=== PATIENT | female | born 1995 | race Caucasian/White ===

== ENCOUNTER 2017-02-06 16:08 | Emergency (ER) | payer OTHER ==
[~2017-02-06] VITALS: Ht 162.6 cm; Wt 57.7 kg
[2017-02-06 16:34] VITALS: BP 115/68
[2017-02-06 17:54] LABS: EOSINOPHILS # (AUTO) 0.5 K/uL (0-0.4); HEMATOCRIT 36.7 % (36-48); MEAN CORPUSCULAR HEMOGLOBIN 27 pg (27-31); MEAN CORPUSCULAR HGB CONC 33 g/dL (33-37); MEAN CORPUSCULAR VOLUME 83 fL (80-94); PLATELET COUNT (AUTO) 164 K/uL (140-450); RED BLOOD CELL COUNT(AUTO) 4.41 MIL/uL (4.20-5.40); RED CELL DISTRIBUTION WIDTH 14.9 % (11.6-13.7)
[2017-02-06 17:54] LABS: APPEARANCE,URINE CLEAR (CLEAR); BILIRUBIN,URINE NEGATIVE (NEGATIVE); BLOOD, URINE 3+ (NEGATIVE); COLOR,URINE YELLOW (YELLOW); LEUKOCYTE ESTERASE ,URINE NEGATIVE (NEGATIVE); NITRITE, URINE NEGATIVE (NEGATIVE); PROTEIN,URINE NEGATIVE (NEGATIVE); UGLUCOSE NEGATIVE (NEGATIVE); UROBILINOGEN,URINE 0.2 EU/dL (0.2 - 1)
[2017-02-06 17:56] LABS: BASOPHILS % (AUTO) 4.1 % (0.0-2.0); LYMPHOCYTES % (AUTO) 17.5 % (20.5-51.1); MONOCYTES % (AUTO) 8.1 % (1.7-9.3); NEUTROPHILS % (AUTO) 62.3 % (42.2-75.2)
[2017-02-06 17:57] LABS: BASOPHILS # (AUTO) 0.2 K/uL (0.00-0.22); EOSINOPHILS % (AUTO) 8.1 % (0.0-4.0); MONOCYTES # (AUTO) 0.5 K/uL (0.8-1.0); NEUTROPHILS # (AUTO) 3.6 K/uL (1.8-7.7)
[2017-02-06 17:57] LABS: BACTERIA,URINE RARE /HPF (None Seen); RBC,URINE 40-60 /HPF (0-5); SQUAMOUS EPITHELIAL CELL,UR 0-3 /LPF (0-3 (FEW)); WBC,URINE 0-3 /HPF (0-5)
[2017-02-06 18:01] LABS: ANION GAP 12.6 (8-16); CALCIUM 8.6 mg/dL (8.5-10.1); CARBON DIOXIDE 28.4 mmol/L (21-32); CREATININE 0.7 mg/dL (0.6-1.3)
[2017-02-06 18:07] LABS: PROTHROMBIN TIME 10.4 secs (10.8-13.4)
[2017-02-06 18:08] LABS: ALBUMIN 3.8 g/dL (3.4-5.0); TOTAL BILIRUBIN 0.1 mg/dL (0.0-1.0); TOTAL PROTEIN, SERUM 7.4 g/dL (6.4-8.2)
--- NOTE | 2017-02-06 19:44 | NUR ---
PT TAKEN TO BED 6
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
--- NOTE | 2017-02-06 20:18 | NUR ---
Dr. Dennis evaluating patient at bedside.
[2017-02-06] MEDS ORDERED: KETOROLAC 60 MG/2 ML VIAL IM ONE (20:25)
[2017-02-06 20:48] VITALS: BP 111/65
--- NOTE | 2017-02-06 20:48 | NUR ---
Patient discharged with v/s stable. Written and verbal after care instructions given and explained. Patient alert, oriented and verbalized understanding of instructions. Ambulatory with steady gait. All questions addressed prior to discharge. ID band removed. Patient advised to follow up with PMD. Rx of MOTRIN 600MG TID given. Patient educated on indication of medication including possible reaction and side effects. Opportunity to ask questions provided and answered.
== END 2017-02-06 20:48 | disposition home or self-care (01) ==
LOC: MED 16:08
DX: N93.9 Abnormal uterine and vaginal bleeding, unspecified (principal); R10.30 Lower abdominal pain, unspecified
CPT/HCPCS: 36415; 80053; 81001; 84702; 85025; 85610; 96372; 99284; J1885

== ENCOUNTER 2018-06-17 15:38 | Emergency (ER) | payer OTHER ==
[~2018-06-17] VITALS: Ht 154.9 cm; Wt 65.5 kg
[2018-06-17 15:45] VITALS: BP 122/70
[2018-06-17 16:45] LABS: BASOPHILS # (AUTO) 0.1 K/uL (0.00-0.22); BASOPHILS % (AUTO) 0.8 % (0.0-2.0); EOSINOPHILS # (AUTO) 0.5 K/uL (0-0.4); EOSINOPHILS % (AUTO) 6.7 % (0.0-4.0); HEMATOCRIT 40.6 % (36-48); HEMOGLOBIN 13.3 g/dL (12.0-16.0); LYMPHOCYTES # (AUTO) 1.3 K/uL (2.5-16.5); LYMPHOCYTES % (AUTO) 18.9 % (20.5-51.1); MEAN CORPUSCULAR HEMOGLOBIN 28 pg (27-31); MEAN CORPUSCULAR HGB CONC 33 g/dL (33-37); MEAN CORPUSCULAR VOLUME 86.3 fL (80-94); MONOCYTES # (AUTO) 0.5 K/uL (0.8-1.0); MONOCYTES % (AUTO) 6.5 % (1.7-9.3); NEUTROPHILS # (AUTO) 4.7 K/uL (1.8-7.7); NEUTROPHILS % (AUTO) 67.1 % (42.2-75.2); PLATELET COUNT (AUTO) 223 K/uL (140-450); RED BLOOD CELL COUNT(AUTO) 4.71 MIL/uL (4.20-5.40); RED CELL DISTRIBUTION WIDTH 13.5 % (11.6-13.7)
[2018-06-17 17:10] LABS: APPEARANCE,URINE CLEAR (CLEAR); BILIRUBIN,URINE NEGATIVE (NEGATIVE); BLOOD, URINE NEGATIVE (NEGATIVE); COLOR,URINE YELLOW (YELLOW); LEUKOCYTE ESTERASE ,URINE NEGATIVE (NEGATIVE); NITRITE, URINE NEGATIVE (NEGATIVE); UGLUCOSE NEGATIVE (NEGATIVE)
[2018-06-17 18:10] VITALS: BP 122/70
== END 2018-06-17 18:11 | disposition home or self-care (01) ==
LOC: MED 15:38
DX: O26.891 Other specified pregnancy related conditions, first trimester (principal); R10.30 Lower abdominal pain, unspecified; J45.909 Unspecified asthma, uncomplicated; Z90.49 Acquired absence of other specified parts of digestive tract
CPT/HCPCS: 36415; 76817; 81003; 81025; 84702; 85025; 86900; 86901; 99285; Q0092

== ENCOUNTER 2018-07-16 18:28 | Emergency (ER) | payer OTHER ==
[~2018-07-16] VITALS: Ht 154.9 cm; Wt 65.3 kg
[2018-07-16 18:34] VITALS: BP 137/74
--- NOTE | 2018-07-16 18:36 | NUR ---
PT AMBULATED TO BED 12
--- NOTE | 2018-07-16 18:48 | NUR ---
23/F BIB SELF C/O VAGINAL DISCHARGE X 3 DAYS, CLEAR INCREASED OVER PAST FEW DAYS. DENIES BLEEDING. ALSO C/O BORGES & LOW BACK PAIN 10. 9 WEEKS , + CARE . HX---NONE. MEDS---NONE. PT DENIES ANY FEVER, CP, SOB, OR COUGH AT THIS TIME; PATIENT STATES PAIN OF 7/10 AT THIS TIME. PATIENT POSITIONED FOR COMFORT; HOB ELEVATED; BEDRAILS UP X2; BED DOWN. ER MD MADE AWARE OF PT STATUS.
--- NOTE | 2018-07-16 19:13 | NUR ---
Pt report given to IDA CALVO. Transfer of care at this time.
--- NOTE | 2018-07-16 19:25 | NUR ---
RECEIVED REPORT FROM AM NURSE. PT LAYING IN BED, RR EVEN AND UNLABORED. PT REPORTS TOLERABLE LLQ CRAMPING DISCOMFORT AT THIS TIME. ALL NEEDS MET.
--- NOTE | 2018-07-16 19:28 | NUR ---
Dr. Dennis evaluating patient at bedside.
--- NOTE | 2018-07-16 19:47 | NUR ---
PT TAKEN TO ULTRASOUND
[2018-07-16 20:13] LABS: APPEARANCE,URINE CLEAR (CLEAR); BILIRUBIN,URINE NEGATIVE (NEGATIVE); BLOOD, URINE NEGATIVE (NEGATIVE); COLOR,URINE YELLOW (YELLOW); LEUKOCYTE ESTERASE ,URINE NEGATIVE (NEGATIVE); NITRITE, URINE NEGATIVE (NEGATIVE); PH,URINE 6.5 (5.0-9.0); UGLUCOSE NEGATIVE (NEGATIVE)
--- NOTE | 2018-07-16 20:23 | NUR ---
PT RETURN FROM ULTRASOUND
[2018-07-16 20:41] LABS: BASOPHILS # (AUTO) 0.1 K/uL (0.00-0.22); BASOPHILS % (AUTO) 0.6 % (0.0-2.0); EOSINOPHILS # (AUTO) 0.5 K/uL (0-0.4); HEMATOCRIT 40.1 % (36-48); HEMOGLOBIN 13.1 g/dL (12.0-16.0); LYMPHOCYTES # (AUTO) 1.4 K/uL (2.5-16.5); MEAN CORPUSCULAR HEMOGLOBIN 29 pg (27-31); MEAN CORPUSCULAR HGB CONC 33 g/dL (33-37); MEAN CORPUSCULAR VOLUME 87.1 fL (80-94); MONOCYTES # (AUTO) 0.6 K/uL (0.8-1.0); MONOCYTES % (AUTO) 6.4 % (1.7-9.3); NEUTROPHILS # (AUTO) 6.7 K/uL (1.8-7.7); PLATELET COUNT (AUTO) 233 K/uL (140-450); WHITE BLOOD COUNT (AUTO) 9.2 K/uL (4.8-10.8)
[2018-07-16 21:29] VITALS: BP 109/71
--- NOTE | 2018-07-16 21:29 | NUR ---
Patient discharged with v/s stable. Written and verbal after care instructions given and explained. Patient verbalized understanding. Ambulatory with steady gait. All questions addressed prior to discharge. Advised to follow up with PMD.
[2018-07-18 06:21] LABS: CHLAMYDIA TRACHOMATIS AMP DNA Negative (Negative)
== END 2018-07-16 21:29 | disposition home or self-care (01) ==
LOC: MED 18:28
DX: O26.891 Other specified pregnancy related conditions, first trimester (principal); R10.32 Left lower quadrant pain; M54.5 Low back pain; Z90.89 Acquired absence of other organs; Z3A.09 9 weeks gestation of pregnancy
CPT/HCPCS: 36415; 76817; 81003; 81025; 84702; 85025; 87491; 99284; Q0092

== ENCOUNTER 2018-11-21 12:12 | Emergency (ER) | payer OTHER ==
[~2018-11-21] VITALS: Ht 154.9 cm; Wt 76.5 kg
[2018-11-21 12:19] VITALS: BP 114/74
--- NOTE | 2018-11-21 12:31 | NUR ---
23/F BIB BF WITH C/O WEAKNESS, LIGHT HEADACHE, +NAUSEA X3 DAYS, 27 WEEKS . SKIN IS PINK/WARM/DRY; AAOX4 WITH EVEN AND STEADY GAIT; LUNGS CLEAR BL; HR EVEN AND REGULAR; PT DENIES ANY FEVER, CP, SOB, OR COUGH AT THIS TIME; PATIENT STATES PAIN OF 0/10 AT THIS TIME. PATIENT POSITIONED FOR COMFORT; HOB ELEVATED; BEDRAILS UP X2; BED DOWN. ER MD MADE AWARE OF PT STATUS.
[2018-11-21] MEDS ORDERED: ONDANSETRON 4 MG/2 ML VIAL IVP ONE (13:15)
[2018-11-21] MEDS ORDERED: MULTIVITAMIN-12 10 ML, THIAMINE 100 MG, MAGNESIUM SULFATE 50% 2,000 MG, FOLIC ACID 5 MG... IV ONE ×5 (13:15)
[2018-11-21] MEDS ORDERED: FAMOTIDINE 20 MG TAB PO ONE (13:15)
[2018-11-21] MEDS ORDERED: LACTATED RINGERS 1,000 ML IV ONE (13:15)
[2018-11-21] MEDS ORDERED: PROMETHAZINE 25 MG/ML VIAL IM ONE (13:15)
[2018-11-21] MEDS ORDERED: MECLIZINE 25 MG TAB PO ONE (13:15)
[2018-11-21] MEDS ORDERED: hydrOXYzine HCL 25 MG TAB PO ONE (13:15)
[2018-11-21 13:16] LABS: BARBITURATE, URINE NEG. ng/ml (NEG <=200); BENZODIAZEPINE, URINE NEG. ng/mL (NEG <=200); CANNABINOID, URINE NEG. ng/mL (NEG <=50); COCAINE, URINE NEG. ng/mL (NEG <=300); OPIATE, URINE NEG. ng/mL (NEG <=2000); PHENCYCLIDINE SCREEN,URINE NEG. ng/mL (NEG <=25)
[2018-11-21 14:22] LABS: BASOPHILS % (AUTO) 0.3 % (0.0-2.0); EOSINOPHILS # (AUTO) 0.3 K/uL (0-0.4); EOSINOPHILS % (AUTO) 3.2 % (0.0-4.0); HEMATOCRIT 35.9 % (36-48); HEMOGLOBIN 12.1 g/dL (12.0-16.0); LYMPHOCYTES % (AUTO) 11.2 % (20.5-51.1); MEAN CORPUSCULAR HEMOGLOBIN 30 pg (27-31); MEAN CORPUSCULAR HGB CONC 34 g/dL (33-37); MEAN CORPUSCULAR VOLUME 87.7 fL (80-94); MONOCYTES # (AUTO) 0.5 K/uL (0.8-1.0); MONOCYTES % (AUTO) 5.6 % (1.7-9.3); NEUTROPHILS % (AUTO) 79.7 % (42.2-75.2); PLATELET COUNT (AUTO) 183 K/uL (140-450); RED CELL DISTRIBUTION WIDTH 14.1 % (11.6-13.7); WHITE BLOOD COUNT (AUTO) 8.8 K/uL (4.8-10.8)
[2018-11-21 14:27] LABS: ANION GAP 10.6 (8-16); CARBON DIOXIDE 25.9 mmol/L (21-32); CHLORIDE 102 mmol/L (98-107); CREATININE 0.5 mg/dL (0.6-1.3); GFR ARICAN-AMERICAN 200 mL/min (>90); GLUCOSE 131 mg/dL (74-106); POTASSIUM 3.5 mmol/L (3.5-5.1); SODIUM SERUM 135 mmol/L (136-145); UREA NITROGEN, BLOOD 6 mg/dL (7-18)
[2018-11-21 14:34] LABS: ALBUMIN 2.7 g/dL (3.4-5.0); ASPARTATE AMINOTRANSFERASE 14 U/L (15-37); MAGNESIUM 1.8 mg/dL (1.8-2.4); TOTAL BILIRUBIN 0.1 mg/dL (0.0-1.0)
[2018-11-21 14:53] LABS: ACETONE, SERUM NEGATIVE (NEGATIVE)
[2018-11-21 16:44] VITALS: BP 120/75
--- NOTE | 2018-11-21 16:44 | NUR ---
Patient discharged with v/s stable. Written and verbal after care instructions given and explained. Patient alert, oriented and verbalized understanding of instructions. Ambulatory with steady gait. All questions addressed prior to discharge. ID band removed. Patient advised to follow up with PMD. Rx of [facility] vitamins, periactin given. Patient educated on indication of medication including possible reaction and side effects. Opportunity to ask questions provided and answered.
[2018-11-21 21:15] LABS: APPEARANCE,URINE HAZY (CLEAR); BILIRUBIN,URINE NEGATIVE (NEGATIVE); BLOOD, URINE NEGATIVE (NEGATIVE); COLOR,URINE YELLOW (YELLOW); LEUKOCYTE ESTERASE ,URINE NEGATIVE (NEGATIVE); NITRITE, URINE NEGATIVE (NEGATIVE); UGLUCOSE 2+ (NEGATIVE)
== END 2018-11-21 16:44 | disposition home or self-care (01) ==
LOC: MED 12:12
DX: O21.0 Mild hyperemesis gravidarum (principal); O26.892 Other specified pregnancy related conditions, second trimester; R51 Headache; Z3A.24 24 weeks gestation of pregnancy
CPT/HCPCS: 36415; 80053; 80305; 81003; 81025; 82009; 83605; 83735; 85025; 96365; 96372; 96375; 99284; A9153; J2405; J2550; J3411; J3475; J3490; J7030; J7120; J8597

== ENCOUNTER 2019-02-12 14:12 | Emergency (ER) | payer OTHER ==
[~2019-02-12] VITALS: Ht 154.9 cm; Wt 82.1 kg
[2019-02-12 14:30] VITALS: BP 134/84
--- NOTE | 2019-02-12 14:30 | NUR ---
PATIENT BIB W/C TO ER BED 6.
--- NOTE | 2019-02-12 14:40 | NUR ---
PT IS A 23 Y/O FEMALE WHO PRESENTS TO THE ED C/O VOMITING. PER PT IS X38 WEEKS AND STARTED VOMITING TODAY AT 0300. LMP 05/10/19. PT REPORTS 5/10 ACHING UPPER ABD PAIN THAT DOES NOT RADIATE. PT DENIES CP, SOB, REPORTS VOMITING/DIARRHEA. PT AWAKE AND ALERT, RR EVEN/UNLABORED. PT REPOSITIONED FOR COMFORT, BED IN LOWEST POSITION. ER MD DR. BAXTER NOTIFIED. WILL CONTINUE TO MONITOR. PMH---ASTHMA NKA
--- NOTE | 2019-02-12 14:51 | NUR ---
Dr. Gonzales evaluating patient at bedside.
[2019-02-12] MEDS ORDERED: ONDANSETRON 4 MG/2 ML VIAL IVP ONE (15:00)
--- NOTE | 2019-02-12 15:00 | NUR ---
PATIENT REPORT GIVEN TO CRISTHIAN CALVO. TRANSFER OF CARE AT THIS TIME.
--- NOTE | 2019-02-12 15:30 | NUR ---
UNIT CONTROL WORKER AT BEDSIDE
[2019-02-12 15:33] LABS: BASOPHILS % (AUTO) 0.6 % (0.0-2.0); EOSINOPHILS # (AUTO) 0.6 K/uL (0-0.4); EOSINOPHILS % (AUTO) 7.7 % (0.0-4.0); HEMATOCRIT 39.4 % (36-48); HEMOGLOBIN 12.9 g/dL (12.0-16.0); LYMPHOCYTES # (AUTO) 0.9 K/uL (2.5-16.5); LYMPHOCYTES % (AUTO) 12.9 % (20.5-51.1); MEAN CORPUSCULAR HEMOGLOBIN 29 pg (27-31); MEAN CORPUSCULAR HGB CONC 33 g/dL (33-37); MEAN CORPUSCULAR VOLUME 88.4 fL (80-94); MONOCYTES # (AUTO) 0.5 K/uL (0.8-1.0); MONOCYTES % (AUTO) 6.7 % (1.7-9.3); NEUTROPHILS # (AUTO) 5.3 K/uL (1.8-7.7); NEUTROPHILS % (AUTO) 72.1 % (42.2-75.2); PLATELET COUNT (AUTO) 147 K/uL (140-450); RED BLOOD CELL COUNT(AUTO) 4.45 MIL/uL (4.20-5.40); RED CELL DISTRIBUTION WIDTH 14.2 % (11.6-13.7); WHITE BLOOD COUNT (AUTO) 7.3 K/uL (4.8-10.8)
[2019-02-12 15:35] LABS: APPEARANCE,URINE CLEAR (CLEAR); BILIRUBIN,URINE NEGATIVE (NEGATIVE); BLOOD, URINE TRACE-L (NEGATIVE); COLOR,URINE YELLOW (YELLOW); LEUKOCYTE ESTERASE ,URINE NEGATIVE (NEGATIVE); NITRITE, URINE NEGATIVE (NEGATIVE); UGLUCOSE NEGATIVE (NEGATIVE)
[2019-02-12 15:45] LABS: WBC,URINE 0-5 /HPF (0-5)
[2019-02-12 15:53] LABS: ALBUMIN 2.6 g/dL (3.4-5.0); ANION GAP 16.3 (8-16); CARBON DIOXIDE 20.2 mmol/L (21-32); CREATININE 0.6 mg/dL (0.6-1.3); POTASSIUM 3.5 mmol/L (3.5-5.1); TOTAL BILIRUBIN 0.3 mg/dL (0.0-1.0)
--- NOTE | 2019-02-12 16:30 | NUR ---
PT AAO X4. PT DENIES NAUSEA. PT STATES MILD PAIN AT THIS TIME.
[2019-02-12 17:58] VITALS: BP 125/84
--- NOTE | 2019-02-12 17:58 | NUR ---
DR BAXTER AT BEDSIDE FOR PT DISCHARGE
== END 2019-02-12 17:58 | disposition home or self-care (01) ==
LOC: MED 14:12
DX: O98.513 Other viral diseases complicating pregnancy, third trimester (principal); Z3A.38 38 weeks gestation of pregnancy; Z90.89 Acquired absence of other organs
CPT/HCPCS: 36415; 76805; 80053; 81001; 81025; 84702; 85025; 86900; 86901; 87086; 96374; 99284; J2405; Q0092

== ENCOUNTER 2021-01-21 20:01 | Emergency (ER) | payer OTHER ==
[~2021-01-21] VITALS: Ht 157.5 cm; Wt 70.8 kg
[2021-01-21 20:17] VITALS: BP 120/80
--- NOTE | 2021-01-21 20:17 | NUR ---
TO BED AMBULATORY
--- NOTE | 2021-01-21 20:56 | NUR ---
25 Y/O FEMALE PATIENT PRESENTS TO ED WITH VAGINAL BLEEDING. PT STATES "I TESTED POSITIVE FOR TODAY, AND I NOTICED A SCNATY AMOUNT OF BLOOD SINCE FRIDAY, I THOUGHT I WAS JUST ON MY PERIOD." DENIES N/V/D; SKIN IS PINK/WARM/DRY; AAOX4 WITH EVEN AND STEADY GAIT; LUNGS CLEAR BL; HR EVEN AND REGULAR; PT DENIES ANY FEVER, CP, SOB, OR COUGH AT THIS TIME; PATIENT STATES PAIN OF 5/10 LOWER ABDOMINAL PAIN AT THIS TIME; VSS; PATIENT POSITIONED FOR COMFORT; HOB ELEVATED; BEDRAILS UP X2; BED DOWN. ER MD MADE AWARE OF PT STATUS. NORA PMH: ASTHMA LMP: October G3 L1 M1
[2021-01-21 21:09] LABS: BASOPHILS % (AUTO) 0.6 % (0.0-2.0); EOSINOPHILS # (AUTO) 0.3 K/uL (0-0.4); EOSINOPHILS % (AUTO) 6.2 % (0.0-4.0); HEMATOCRIT 38.3 % (36-48); HEMOGLOBIN 12.8 g/dL (12.0-16.0); LYMPHOCYTES # (AUTO) 1.3 K/uL (2.5-16.5); MEAN CORPUSCULAR HEMOGLOBIN 30 pg (27-31); MEAN CORPUSCULAR HGB CONC 33 g/dL (33-37); MEAN CORPUSCULAR VOLUME 88.6 fL (80-94); MONOCYTES # (AUTO) 0.4 K/uL (0.8-1.0); MONOCYTES % (AUTO) 7.4 % (1.7-9.3); NEUTROPHILS # (AUTO) 3.5 K/uL (1.8-7.7); NEUTROPHILS % (AUTO) 61.8 % (42.2-75.2); PLATELET COUNT (AUTO) 185 K/uL (140-450); RED BLOOD CELL COUNT(AUTO) 4.33 MIL/uL (4.20-5.40); RED CELL DISTRIBUTION WIDTH 13.2 % (11.6-13.7); WHITE BLOOD COUNT (AUTO) 5.6 K/uL (4.8-10.8)
[2021-01-21 21:24] LABS: BILIRUBIN,URINE NEGATIVE (NEGATIVE); BLOOD, URINE 3+ (NEGATIVE); COLOR,URINE YELLOW (YELLOW); LEUKOCYTE ESTERASE ,URINE 1+ (NEGATIVE); NITRITE, URINE NEGATIVE (NEGATIVE); UGLUCOSE NEGATIVE (NEGATIVE)
[2021-01-21 21:27] LABS: ALBUMIN 3.8 g/dL (3.4-5.0); CARBON DIOXIDE 27.1 mmol/L (21-32); CREATININE 0.7 mg/dL (0.6-1.3); POTASSIUM 4.1 mmol/L (3.5-5.1); TOTAL BILIRUBIN 0.2 mg/dL (0.0-1.0)
[2021-01-21 21:38] LABS: APPEARANCE,URINE SLIGHTLY HAZY (CLEAR)
[2021-01-21 21:40] LABS: RBC,URINE 0-5 /HPF (0-5); WBC,URINE 0-5 /HPF (0-5)
[2021-01-21] MEDS ORDERED: PNV1TABL5 PO (22:17)
[2021-01-21 23:23] VITALS: BP 118/78
--- NOTE | 2021-01-21 23:24 | NUR ---
Patient discharged with v/s stable. Written and verbal after care instructions given and explained. Patient alert, oriented and verbalized understanding of instructions. Ambulatory with steady gait. All questions addressed prior to discharge. ID band removed. Patient advised to follow up with PMD. Rx of VITAMIN given. Patient educated on indication of medication including possible reaction and side effects. Opportunity to ask questions provided and answered.
== END 2021-01-21 23:23 | disposition home or self-care (01) ==
LOC: MED 20:01
DX: O20.0 Threatened abortion (principal); J45.909 Unspecified asthma, uncomplicated; Z3A.08 8 weeks gestation of pregnancy
CPT/HCPCS: 36415; 76817; 80053; 81001; 81025; 84702; 85025; 86886; 86900; 86901; 87086; 99284

== ENCOUNTER 2021-03-19 16:49 | Emergency (ER) | payer OTHER ==
[~2021-03-19] VITALS: Ht 167.6 cm; Wt 62.1 kg
[~2021-03-19 16:49] MED LIST: PNV1TABL5 PO
[2021-03-19 17:09] VITALS: BP 125/83
[2021-03-19] MEDS ORDERED: ACETAMINOPHEN 325 MG TAB PO ONE (17:55)
--- NOTE | 2021-03-19 20:12 | NUR ---
PT CALLED ON PERSONAL CELLPHONE AND ASKED TO RETURN TO LOBBY.
[2021-03-19] MEDS ORDERED: ACET-2619 PO (20:39)
[2021-03-20 02:28] LABS: APPEARANCE,URINE CLOUDY (CLEAR); BILIRUBIN,URINE NEGATIVE (NEGATIVE); BLOOD, URINE NEGATIVE (NEGATIVE); COLOR,URINE YELLOW (YELLOW); LEUKOCYTE ESTERASE ,URINE NEGATIVE (NEGATIVE); NITRITE, URINE NEGATIVE (NEGATIVE); UGLUCOSE NEGATIVE (NEGATIVE)
== END 2021-03-19 21:03 | disposition home or self-care (01) ==
LOC: MED 16:49
DX: O9A.212 Injury, poisoning and certain other consequences of external causes complicating pregnancy, second trimester (principal); O26.892 Other specified pregnancy related conditions, second trimester; R10.30 Lower abdominal pain, unspecified; M54.5 Low back pain; J45.909 Unspecified asthma, uncomplicated; Z3A.15 15 weeks gestation of pregnancy; Z79.899 Other long term (current) drug therapy
CPT/HCPCS: 76805; 81003; 99284

== ENCOUNTER 2021-06-10 18:45 | Observation (INO) | payer OTHER, SELFPAY ==
[~2021-06-10] VITALS: Ht 157.5 cm; Wt 83.0 kg
[~2021-06-10 18:45] MED LIST changes: +ACET-2619 PO
[2021-06-10] MEDS ORDERED: ONDA8TAB87 PO (22:35)
== END 2021-06-10 19:45 | disposition home or self-care (01) ==
LOC: MLD 18:45
PROVIDERS: ADMIT Obstetrics & Gynecology; ATTEND Obstetrics & Gynecology
DX: O26.893 Other specified pregnancy related conditions, third trimester (principal); R10.9 Unspecified abdominal pain; Z3A.28 28 weeks gestation of pregnancy
CPT/HCPCS: 59025; 81000; G0378; G0379

== ENCOUNTER 2021-06-10 19:59 | Emergency (ER) | payer OTHER, SELFPAY ==
[~2021-06-10] VITALS: Ht 157.5 cm; Wt 83.5 kg
[2021-06-10 20:15] VITALS: BP 119/67
--- NOTE | 2021-06-10 20:20 | NUR ---
PT AMBULATED TO LOBBY TO A/W BED. PT UNABLE TO PROVIDE URINE SPECIMEN AT THIS TIME.
--- NOTE | 2021-06-10 21:00 | NUR ---
PT A,BULATED TO ER BED 11 UNASSISTED Addendum: 06/10/21 at 2102 by MEDWA PT AMBULATED TO ER BED 11 UNASSISTED
[2021-06-10] MEDS ORDERED: ONDANSETRON 4 MG/2 ML VIAL IVP ONE ×2 (21:05→22:10)
[2021-06-10] MEDS ORDERED: NACL 0.9% 1,000 ML IV ONE ×2 (21:05→22:10)
[2021-06-10 21:07] LABS: APPEARANCE,URINE CLEAR (CLEAR); BILIRUBIN,URINE NEGATIVE (NEGATIVE); BLOOD, URINE NEGATIVE (NEGATIVE); COLOR,URINE YELLOW (YELLOW); LEUKOCYTE ESTERASE ,URINE NEGATIVE (NEGATIVE); NITRITE, URINE NEGATIVE (NEGATIVE); UGLUCOSE NEGATIVE (NEGATIVE)
--- NOTE | 2021-06-10 21:38 | NUR ---
PATIENT REPORTS DIZZINESS AND SOME NAUSEA. WAS JUST DISCHARGED FROM THIS FACILITY TONIGHT FROM L/D. PATIENT IS AND CAME DIRECTLY TO ER AFTER DISCHARGE
--- NOTE | 2021-06-10 22:08 | NUR ---
ER AT BEDSIDE
[2021-06-10] MEDS ORDERED: ONDA8TAB87 PO (22:35)
[2021-06-10 23:02] VITALS: BP 108/67
--- NOTE | 2021-06-10 23:02 | NUR ---
CLEARED FOR DISCHARGE AT THIS TIME. NO FURTHER COMPLAINTS OR CONCERNS FOLLOWING DISCHARGE TEACHING. DENIES ANY FURTHER QUESTIONS.
== END 2021-06-10 23:02 | disposition home or self-care (01) ==
LOC: MED 19:59
DX: O21.8 Other vomiting complicating pregnancy (principal); O26.893 Other specified pregnancy related conditions, third trimester; R42 Dizziness and giddiness; J45.909 Unspecified asthma, uncomplicated; Z3A.27 27 weeks gestation of pregnancy; Z79.899 Other long term (current) drug therapy; Z90.49 Acquired absence of other specified parts of digestive tract
CPT/HCPCS: 81003; 81025; 96361; 96374; 96375; 99284; J2405; J7030

== ENCOUNTER 2021-12-20 15:34 | Emergency (ER) | payer OTHER ==
[~2021-12-20] VITALS: Ht 160 cm; Wt 76.7 kg
[~2021-12-20 15:34] MED LIST changes: +ONDA8TAB87 PO
[2021-12-20 16:02] VITALS: BP 94/55
--- NOTE | 2021-12-20 16:05 | NUR ---
PT AMB TO BED 7
[2021-12-20] MEDS ORDERED: KETOROLAC 30 MG/ML VIAL IM ONE (16:25)
--- NOTE | 2021-12-20 16:42 | NUR ---
26 Y/O FEMALE BIB SELF C/O ABDOMINAL PAIN X 1 DAY. PT STATES PAIN RADIATES TO HER LOWER BACK. PT DENIES N/V/D; SKIN IS INTACT, PINK/WARM/DRY; AAOX4, PERRL, WITH EVEN AND STEADY GAIT; LUNGS CLEAR BL, BREATHING UNLABORED; PT DENIES ANY FEVER, CP, SOB, OR COUGH AT THIS TIME; PT STATES 7/10 PAIN AT THIS TIME; VSS; PATIENT POSITIONED FOR COMFORT; HOB ELEVATED; BEDRAILS UP X2; BED DOWN. PMH: ASTHMA MEDS: DENIES
[2021-12-20 16:43] LABS: BASOPHILS # (AUTO) 0.1 K/uL (0.00-0.22); BASOPHILS % (AUTO) 1.1 % (0.0-2.0); EOSINOPHILS # (AUTO) 0.3 K/uL (0-0.4); HEMATOCRIT 39.4 % (36-48); HEMOGLOBIN 12.8 g/dL (12.0-16.0); LYMPHOCYTES # (AUTO) 1.3 K/uL (2.5-16.5); LYMPHOCYTES % (AUTO) 26.6 % (20.5-51.1); MEAN CORPUSCULAR HEMOGLOBIN 26 pg (27-31); MEAN CORPUSCULAR HGB CONC 33 g/dL (33-37); MEAN CORPUSCULAR VOLUME 80.1 fL (80-94); MONOCYTES # (AUTO) 0.4 K/uL (0.8-1.0); MONOCYTES % (AUTO) 7.2 % (1.7-9.3); NEUTROPHILS # (AUTO) 2.9 K/uL (1.8-7.7); NEUTROPHILS % (AUTO) 58.1 % (42.2-75.2); PLATELET COUNT (AUTO) 188 K/uL (140-450); RED BLOOD CELL COUNT(AUTO) 4.92 MIL/uL (4.20-5.40); RED CELL DISTRIBUTION WIDTH 17.1 % (11.6-13.7); WHITE BLOOD COUNT (AUTO) 4.9 K/uL (4.8-10.8)
[2021-12-20 16:51] LABS: BILIRUBIN,URINE NEGATIVE (NEGATIVE); BLOOD, URINE 3+ (NEGATIVE); COLOR,URINE YELLOW (YELLOW); LEUKOCYTE ESTERASE ,URINE 2+ (NEGATIVE); NITRITE, URINE NEGATIVE (NEGATIVE); PH,URINE 5.5 (5.0-9.0); UGLUCOSE NEGATIVE (NEGATIVE)
[2021-12-20 16:52] LABS: APPEARANCE,URINE CLOUDY (CLEAR)
[2021-12-20 17:02] LABS: ALBUMIN 4.2 g/dL (3.4-5.0); ANION GAP 10.3 (8-16); CARBON DIOXIDE 28.6 mmol/L (21-32); CREATININE 0.6 mg/dL (0.6-1.3); POTASSIUM 3.9 mmol/L (3.5-5.1); TOTAL BILIRUBIN 0.2 mg/dL (0.0-1.0)
[2021-12-20 17:07] LABS: RBC,URINE 0-5 /HPF (0-5); WBC,URINE 20-60 /HPF (0-5)
[2021-12-20] MEDS ORDERED: IBUP-2213 PO (18:58)
[2021-12-20] MEDS ORDERED: CEPH500C16 PO (18:58)
--- NOTE | 2021-12-20 19:10 | NUR ---
PT RESTING IN NO APPARENT DISTRESS, BREATHING EVEN AND UNLABORED. WILL CONTINUE TO MONITOR.
[2021-12-20 19:25] VITALS: BP 118/79
--- NOTE | 2021-12-20 19:27 | NUR ---
Patient discharged with v/s stable. Written and verbal after care instructions given and explained. Patient alert, oriented and verbalized understanding of instructions. Ambulatory with steady gait. All questions addressed prior to discharge. ID band removed. Patient advised to follow up with PMD. Rx of KEFLEX, IBUPROFEN given. Patient educated on indication of medication including possible reaction and side effects. Opportunity to ask questions provided and answered.
== END 2021-12-20 19:27 | disposition home or self-care (01) ==
LOC: MED 15:34
DX: N83.202 Unspecified ovarian cyst, left side (principal); N39.0 Urinary tract infection, site not specified; R93.89 Abnormal findings on diagnostic imaging of other specified body structures; J45.909 Unspecified asthma, uncomplicated; Z90.49 Acquired absence of other specified parts of digestive tract; Z79.1 Long term (current) use of non-steroidal anti-inflammatories (NSAID); Z79.2 Long term (current) use of antibiotics; Z79.899 Other long term (current) drug therapy
CPT/HCPCS: 36415; 76856; 80053; 81001; 81025; 83690; 85025; 87086; 96372; 99284; J1885; Q0092

== ENCOUNTER 2022-05-03 12:26 | Emergency (ER) | payer OTHER ==
[~2022-05-03] VITALS: Ht 160 cm; Wt 70.3 kg
[~2022-05-03 12:26] MED LIST changes: +CEPH500C16 PO; +IBUP-2213 PO
[2022-05-03 12:43] VITALS: BP 110/65
[2022-05-03] MEDS ORDERED: IBUP-2213 PO (13:55)
[2022-05-03] MEDS ORDERED: IBUPROFEN 600 MG TAB PO ONE (13:55)
--- NOTE | 2022-05-03 14:15 | NUR ---
LARGE SIZE SLING APPLIED TO R SHOULDER
[2022-05-03 14:48] VITALS: BP 114/80
== END 2022-05-03 14:48 | disposition home or self-care (01) ==
LOC: MED 12:26
DX: M25.511 Pain in right shoulder (principal); J45.909 Unspecified asthma, uncomplicated
CPT/HCPCS: 73030; 99283

== ENCOUNTER 2023-08-06 20:43 | Emergency (ER) | payer OTHER ==
[~2023-08-06] VITALS: Ht 157.5 cm; Wt 79.4 kg
[2023-08-06 20:54] VITALS: BP 113/75; PULSE 98; RESP 16; TEMP 98.4; O2SAT 100
[2023-08-06 22:08] VITALS: O2SAT 99
[2023-08-06] MEDS ORDERED: AMOXICILLIN 500 MG CAP PO ONE (23:35)
[2023-08-06] MEDS ORDERED: NACL 0.9% 1,000 ML IV ONE (23:35)
[2023-08-06] MEDS ORDERED: ONDANSETRON 4 MG/2 ML VIAL IVP ONE (23:35)
[2023-08-07] MEDS ORDERED: ACET-2619 PO (00:27)
[2023-08-07] MEDS ORDERED: ONDA-188 SL (00:27)
[2023-08-07] MEDS ORDERED: AMOX500C25 PO (00:27)
[2023-08-07 01:12] LABS: FLU A ANTIGEN negative (NEGATIVE); FLU B ANTIGEN NEGATIVE (NEGATIVE)
[2023-08-07 01:30] VITALS: BP 107/76; PULSE 93; RESP 17; TEMP 98.1; O2SAT 98
== END 2023-08-07 01:30 | disposition home or self-care (01) ==
LOC: MED 20:43
DX: H66.92 Otitis media, unspecified, left ear (principal); R11.2 Nausea with vomiting, unspecified; R55 Syncope and collapse; Z20.822 Contact with and (suspected) exposure to COVID-19; E86.0 Dehydration; J45.909 Unspecified asthma, uncomplicated; Z79.899 Other long term (current) drug therapy; Z79.2 Long term (current) use of antibiotics; Z79.1 Long term (current) use of non-steroidal anti-inflammatories (NSAID)
CPT/HCPCS: 81025; 87426; 87804; 96361; 96374; 99285; J2405; J7030

== ENCOUNTER 2024-01-04 03:49 | Emergency (ER) | payer OTHER ==
[~2024-01-04] VITALS: Ht 157.5 cm; Wt 80.7 kg
[~2024-01-04 03:49] MED LIST changes: +AMOX500C25 PO; +ONDA-188 SL
[2024-01-04 04:01] VITALS: BP 93/56; PULSE 92; RESP 16; TEMP 97.1; O2SAT 97
[2024-01-04] MEDS: NACL 0.9% 1,000 ML IV ONE (04:51)
[2024-01-04] MEDS: ACETAMINOPHEN EXTRA STRENGTH 500 MG TAB PO ONE (04:52)
[2024-01-04] MEDS: METOCLOPRAMIDE 10 MG/2 ML INJ VIAL IVP ONE (04:53)
[2024-01-04 04:55] VITALS: BP 93/56; PULSE 92; RESP 16; TEMP 97.1
[2024-01-04 05:12] VITALS: O2SAT 97
[2024-01-04 05:15] LABS: BASOPHILS % (AUTO) 0.3 % (0.0-2.0); EOSINOPHILS # (AUTO) 0.1 K/uL (0-0.4); EOSINOPHILS % (AUTO) 1.1 % (0.0-4.0); HEMATOCRIT 39.5 % (36-48); HEMOGLOBIN 13.5 g/dL (12.0-16.0); LYMPHOCYTES # (AUTO) 1.4 K/uL (2.5-16.5); LYMPHOCYTES % (AUTO) 13.3 % (20.5-51.1); MEAN CORPUSCULAR HEMOGLOBIN 29 pg (27-31); MEAN CORPUSCULAR HGB CONC 34 g/dL (33-37); MEAN CORPUSCULAR VOLUME 85.8 fL (80-94); MONOCYTES # (AUTO) 0.5 K/uL (0.8-1.0); MONOCYTES % (AUTO) 4.3 % (1.7-9.3); NEUTROPHILS # (AUTO) 8.5 K/uL (1.8-7.7); PLATELET COUNT (AUTO) 214 K/uL (140-450); RED CELL DISTRIBUTION WIDTH 12.8 % (11.6-13.7); WHITE BLOOD COUNT (AUTO) 10.5 K/uL (4.8-10.8)
[2024-01-04] MEDS: KETOROLAC 30 MG/ML VIAL IVP ONE (05:17)
[2024-01-04 05:27] LABS: ANION GAP 14.8 (8-16); CALCIUM 9.5 mg/dL (8.5-10.1); CARBON DIOXIDE 26.9 mmol/L (21-32); CREATININE 0.7 mg/dL (0.6-1.3); POTASSIUM 3.7 mmol/L (3.5-5.1)
[2024-01-04] MEDS ORDERED: ONDA-188 PO (06:03)
== END 2024-01-04 06:11 | disposition home or self-care (01) ==
LOC: MED 03:49
DX: R51.9 Headache, unspecified (principal); R11.2 Nausea with vomiting, unspecified; M79.10 Myalgia, unspecified site; J45.909 Unspecified asthma, uncomplicated; Z79.899 Other long term (current) drug therapy
CPT/HCPCS: 36415; 80048; 81025; 85025; 96361; 96374; 96375; 99284; J1885; J2765; J7030